=== PATIENT | male | born 1975 | race Caucasian/White ===

== ENCOUNTER 2020-02-17 12:05 | Emergency (ER) | payer OTHER ==
[~2020-02-17] VITALS: Ht 180.3 cm; Wt 104.3 kg
[~2020-02-17 12:05] MED LIST: DIPROSONE OINT.15 GM; TEMOVATE
[2020-02-17] MEDS ORDERED: INTESTINEX680 M1 PO (14:46)
[2020-02-17] MEDS ORDERED: DOXYCYCLINE HY100 MG PO (14:46)
[2020-02-17] MEDS ORDERED: NIZORAL120 ML TOP (14:46)
== END 2020-02-17 14:51 ==
LOC: ER
DX: L02.831 Carbuncle of head [any part, except face] (principal); B35.0 Tinea barbae and tinea capitis

== ENCOUNTER 2020-12-10 14:45 | Emergency (ER) | payer OTHER ==
[~2020-12-10] VITALS: Ht 180.3 cm; Wt 106.6 kg
[~2020-12-10 14:45] MED LIST changes: +DOXYCYCLINE HY100 MG PO; +INTESTINEX680 M1 PO; +NIZORAL120 ML TOP
[2020-12-10] MEDS ORDERED: DICLOFENAC SODI75 MG PO (16:39)
[2020-12-10] MEDS ORDERED: FAMCICLOVIR500 MG PO (16:39)
== END 2020-12-10 17:51 | disposition home or self-care (01) ==
LOC: ER 14:45
DX: B02.9 Zoster without complications (principal)

== ENCOUNTER 2021-02-15 10:49 | Emergency (ER) | payer OTHER ==
[~2021-02-15] VITALS: Ht 180.3 cm; Wt 106.6 kg
[~2021-02-15 10:49] MED LIST changes: +DICLOFENAC SODI75 MG PO; +FAMCICLOVIR500 MG PO
== END 2021-02-15 16:20 | disposition home or self-care (01) ==
LOC: ER 10:49
DX: K29.70 Gastritis, unspecified, without bleeding (principal); R10.11 Right upper quadrant pain

== ENCOUNTER 2021-07-01 13:27 | Emergency (ER) | payer OTHER ==
[~2021-07-01] VITALS: Ht 180.3 cm; Wt 106.1 kg
[2021-07-01] MEDS ORDERED: SKELAGESIC PO (17:00)
== END 2021-07-01 17:09 ==
LOC: ER 13:27
DX: S50.02XS Contusion of left elbow, sequela (principal); X58.XXXS Exposure to other specified factors, sequela